=== PATIENT | female | born 1985 | race Two or more races ===

== ENCOUNTER 2021-06-27 21:15 | Emergency (ER) | payer OTHER ==
[~2021-06-27] VITALS: Ht 167.6 cm; Wt 71.0 kg
[2021-06-27 21:42] VITALS: BP 164/90
[2021-06-27] MEDS ORDERED: BACITRACIN ZINC OINT UDPKT TOP ONE (22:45)
[2021-06-27] MEDS ORDERED: LIDOCAINE HCL/PF 1% 10 MG/ML 5ML VIAL INFIL ONE (22:45)
[2021-06-27] MEDS ORDERED: IBUP-2029 MT (22:52)
[2021-06-27] MEDS ORDERED: SULF1TAB48 MT (22:52)
[2021-06-27] MEDS ORDERED: CEPH500C2 MT (22:52)
== END 2021-06-28 00:21 | disposition home or self-care (01) ==
LOC: ER 21:15
DX: L02.415 Cutaneous abscess of right lower limb (principal); F41.9 Anxiety disorder, unspecified; F31.9 Bipolar disorder, unspecified; I10 Essential (primary) hypertension; F20.9 Schizophrenia, unspecified; Z79.899 Other long term (current) drug therapy
CPT/HCPCS: 99283; J3490